=== PATIENT | male | born 1990 | race Caucasian/White ===

== ENCOUNTER 2017-07-10 00:06 | Emergency (ER) | payer SELFPAY ==
[2017-07-10] MEDS ORDERED: TYLENOL EXTRA STRENGTH 500 MG PO STA (00:15)
[2017-07-10 00:16] VITALS: O2SAT 96
[2017-07-10] MEDS ORDERED: TYLENOL EXTRA STRENGTH 500 MG ONE (00:18)
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
[2017-07-10 00:59] VITALS: BP 115/53; PULSE 102
[2017-07-10] MEDS ORDERED: Adacel Vial IM ONE ×2 (02:28→02:32)
[2017-07-10] MEDS ORDERED: XYLOCAINE 1% HCL 20 ML MDV IJ ONE (02:28)
[2017-07-10] MEDS ORDERED: BACIGUENT PACKET TP ONE (02:28)
[2017-07-10] MEDS ORDERED: TORAdol 30 mg Injection IM ONE (02:29)
[2017-07-10] MEDS ORDERED: TORAdol 30 mg Injection ONE (02:32)
--- NOTE | 2017-07-11 01:27 | XRAY ---
Exam: CT of the head without IV contrast from 07/10/2017. CTDI: 52.39 Comparison: CT of the head without IV contrast from 07/17/2016. Indication:: Patient fell striking left frontal area of head and upper left eye on recliner, Technique: Non-IV contrast axial images were obtained through the brain. Reconstructed coronal and sagittal images were created and reviewed. Findings: The ventricles are of normal size. No focal mass effect or midline shift is seen. No acute intracranial bleed or abnormal extra-axial fluid collection is seen. The alvarez matter-white matter interfaces appear unremarkable. No focal low attenuation edema or acute territorial infarction is seen. The cortical sulci and basilar cisterns appear normal. There is some mild anterior left periorbital soft tissue swelling. I see no evidence of fracture of the calvarium of the skull. The visualized paranasal sinuses are clear. There is some deviation of the posterior aspect of the nasal septum toward the left. A yan bullosa is seen within the right middle nasal turbinate. Mastoid air cells appear unremarkable. Impression: 1. I see no evidence of acute intracranial bleed or other acute intracranial process. 2. No acute fracture of the calvarium of the skull is seen. 3. Some anterior left periorbital soft tissue swelling is seen. No underlying fracture is seen at this level. The visualized paranasal sinuses appear unremarkable.
--- NOTE | 2017-07-11 01:45 | XRAY ---
Exam: CT of the orbits without and with IV contrast from 07/10/2017. Comparison: None. Indication: Patient fell hitting left frontal area and upper aspect of left eye on recliner. Clinical concern for blowout fracture. Technique: Axial images were obtained through the orbits and paranasal sinuses without and with 80 cc of Isovue 370 IV contrast material. Reconstructed coronal and sagittal images were created and reviewed. Findings: I again see some anterior left periorbital soft tissue swelling. The globe of each eye, extraocular muscles, and optic nerves appear unremarkable within each orbit. No mass is seen. I see no evidence of orbital fracture, particularly involving the orbital floor. No significant sinus opacification or air-fluid levels are seen. The infundibulum on the left is narrow, but patent. The infundibulum of the right ostiomeatal complex is compromised by some minimal adjacent mucosal soft tissue. There is also some minimal mucosal thickening along the lower medial margin of each maxillary sinus and the right aspect of the sphenoid sinus. Bilateral yan bullosa are seen, larger on the right than left. There is some deviation of the posterior aspect of the nasal septum toward the left as well as the presence of a septal spur on this side. See coronal image #58. The temporomandibular joints appear unremarkable. Impression: 1. Mild anterior left periorbital soft tissue swelling is seen. 2. No abnormality of either eye or orbit is seen. There is no orbital fracture or paranasal sinus air-fluid levels. 3. Scant scattered mucosal thickening within the paranasal sinuses, probably chronic. Some other incidental findings are seen within the paranasal sinuses, as discussed above..
== END 2017-07-10 02:49 | disposition home or self-care (01) ==
LOC: ED 00:06
PROC: 0HQ1XZZ Repair Face Skin, External Approach (ICD-10-PCS; principal; 2017-07-10)
DX: S01.112A Laceration without foreign body of left eyelid and periocular area, initial encounter (principal); W01.198A Fall on same level from slipping, tripping and stumbling with subsequent striking against other object, initial encounter; F10.129 Alcohol abuse with intoxication, unspecified; R51 Headache
CPT/HCPCS: 12011; 36000; 36415; 70450; 70482; 90471; 90715; 96372; 99284; G0481; J1885; A9270-GY

== ENCOUNTER 2017-09-11 19:33 | Emergency (ER) | payer MEDICAID, OTHER ==
[2017-09-11] MEDS ORDERED: D50W 50 ml Abboject IV ONE ×2 (19:34→19:47)
[2017-09-11] MEDS ORDERED: Sodium Chloride 0.9% 1000 ML 2,000 ML IV STA (19:34)
[2017-09-11] MEDS ORDERED: Sodium Chloride 0.9% 1000 ML 1,000 ML ONE ×2 (19:37→21:01)
[2017-09-11 19:46] LABS: Lactic Acid 2.4 (0.4-2.0)
[2017-09-11 19:46] LABS: BASOPHIL % 0.4 % (0.0-0.4); Basophil (Absolute #) 0.03 (0-0.4); Eosinophil % 1.1 % (0.00-5.0); Eosinophil (Absolute #) 0.08 (0-0.5); Granulocyte Absolute (ANC) 3.86 (1.4-6.9); Granulocytes % 55.1 % (36.0-66.0); Hematocrit 45.3 % (42-50); Hemoglobin 14.7 gm/dl (12.5-18.0); Lymphocytes % 35.7 % (24.0-44.0); Mean Cell Volume 92.6 fl (78-100); Mean Corpuscular Hemoglobin 30.1 pg (26-32); Mean Corpuscular Hgb Concent. 32.5 g/dl (32-36); Mean Platelet Volume 9.3 fl (6-9.5); Monocyte (Absolute #) 0.54 (0.0-1.3); Monocytes % 7.7 % (0.0-12.0); Platelet Count 313 K/mm3 (150-450); Red Blood Count 4.89 M/mm3 (4.1-5.6); Red Cell Distribution Width 13.1 % (11.5-14.0)
[2017-09-11 19:47] VITALS: O2SAT 98
[2017-09-11 20:12] LABS: ALBUMIN 4.1 g/dL (3.4-5.0); ALKALINE PHOSPHATASE 125 U/L (46-116); ANION GAP 16.3 MEQ/L (5-15); BLOOD UREA NITROGEN 16 mg/dL (9-20); CHLORIDE 102 mEq/L (98-107); Calcium 9.1 mg/dL (8.5-10.1); Carbon Dioxide 26.7 mEq/L (21-32); Creatinine 1 1.28 mg/dl (0.55-1.30); EST GLOMERULAR FILTRATION RATE > 60 ML/MIN; ETHYL ALCOHOL 0.108 % (0.00-0.01); Glucose 116 MG/DL (70-110); Potassium 4.5 mEq/L (3.5-5.1); SGOT/AST 18 U/L (15-37); SGPT/ALT 17 U/L (12-78); SODIUM 141 mEq/L (136-145); Total Protein 7.7 gm/dL (6.4-8.2)
[2017-09-11 20:13] LABS: ACETAMINOPHEN < 2.0 ug/ml (10-30)
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
[2017-09-11 21:00] LABS: Appearance CLEAR (CLEAR); Bilirubin NEGATIVE (NEGATIVE); Blood NEGATIVE Ery/ul (0-5); Glucose 500 mg/dL (NEGATIVE); Ketones NEGATIVE (NEGATIVE); Leukocyte Esterase NEGATIVE (NEGATIVE); Nitrite NEGATIVE (NEGATIVE); Protein,Urine Dip NEGATIVE (Negative); Urobilinogen NORMAL mg/dL (0-1)
[2017-09-11] MEDS ORDERED: Sodium Chloride 0.9% 1000 ML 1,000 ML IV STA (21:02)
[2017-09-11 21:07] LABS: Amphetamine,Urine POS. (NEGATIVE); Barbiturate,Urine NEG. (NEGATIVE); Benzodiazepine,Urine POS. (NEGATIVE); Cocaine,Urine NEG. (NEGATIVE); Methadone,Urine NEG. (NEGATIVE); Opiate,Urine NEG. (NEGATIVE); PCP,Urine NEG. (NEGATIVE); THC,Urine POS. (NEGATIVE)
[2017-09-11 21:49] VITALS: BP 133/87; PULSE 96
== END 2017-09-11 22:07 | disposition home or self-care (01) ==
LOC: ED 19:33
DX: F10.129 Alcohol abuse with intoxication, unspecified (principal); T50.995A Adverse effect of other drugs, medicaments and biological substances, initial encounter
CPT/HCPCS: 36415; 80053; 80307; 81002; 83605; 85025; 96360; 96361; 96374; 99284; G0481

== ENCOUNTER 2018-09-10 10:24 | Emergency (ER) | payer OTHER, MEDICAID ==
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
[2018-09-10 13:48] VITALS: BP 114/84; PULSE 97
[2018-09-10 13:59] VITALS: O2SAT 99
== END 2018-09-10 14:26 | disposition short-term general hospital (02) ==
LOC: ED 10:24
DX: S22.32XA Fracture of one rib, left side, initial encounter for closed fracture (principal); S02.40DA Maxillary fracture, left side, initial encounter for closed fracture; S02.32XA Fracture of orbital floor, left side, initial encounter for closed fracture; S00.12XA Contusion of left eyelid and periocular area, initial encounter; Y04.2XXA Assault by strike against or bumped into by another person, initial encounter; Y92.149 Unspecified place in prison as the place of occurrence of the external cause
CPT/HCPCS: 70450; 70486; 71046; 71100; 72125; 73130; 99284